=== PATIENT | female | born 1950 ===

== ENCOUNTER 2023-04-21 05:20 | Day surgery (SDC) | payer OTHER ==
[~2023-04-21] VITALS: Ht 152.4 cm; Wt 61.2 kg
[~2023-04-21 05:20] MED LIST: BREO ELLIPTA I1 EACH IH; ESOMEPRAZOLE MA40 MG PO; LINZESS290 MCG PO; MONTELUKAST SOD10 MG PO; SERTRALINE HCL50 MG PO; SOTOLOL PO; ZOCOR20 MG PO
[2023-04-21] MEDS ORDERED: OXYC1TAB9 PO (09:52)
== END 2023-04-21 14:10 | disposition home or self-care (01) ==
LOC: CIR.AMB 05:20
PROVIDERS: ATTEND Surgery
DX: K64.2 Third degree hemorrhoids (principal); K62.5 Hemorrhage of anus and rectum; K62.89 Other specified diseases of anus and rectum; K64.4 Residual hemorrhoidal skin tags; Z20.822 Contact with and (suspected) exposure to COVID-19; I10 Essential (primary) hypertension